=== PATIENT | male | born 1980 | race Caucasian/White ===

== ENCOUNTER 2018-07-03 01:36 | Emergency (ER) | payer BC, OTHER ==
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
== END 2018-07-03 02:30 | disposition home or self-care (01) ==
LOC: FB.ED 01:36
DX: T52.0X1A Toxic effect of petroleum products, accidental (unintentional), initial encounter (principal); Z88.0 Allergy status to penicillin; Y99.0 Civilian activity done for income or pay
CPT/HCPCS: 93005; 99283